=== PATIENT | female | born 1965 | race Caucasian/White ===

== ENCOUNTER 2020-12-26 08:30 | Outpatient (CLI) | payer OTHER, SELFPAY | END 2020-12-26 08:31 | disposition home or self-care (01) | LOC: ANHCOVIDVC 08:30 | PROVIDERS: PCP Internal Medicine | DX: Z23 Encounter for immunization (principal) | CPT/HCPCS: 0001A; 91300 ==

== ENCOUNTER 2021-01-16 08:30 | Outpatient (CLI) | payer OTHER, SELFPAY | END 2021-01-16 08:31 | LOC: ANHCOVIDVC 08:31 | PROVIDERS: PCP Internal Medicine | DX: Z23 Encounter for immunization (principal) | CPT/HCPCS: 0002A; 91300 ==

== ENCOUNTER 2024-01-07 17:00 | Outpatient (CLI) | payer OTHER, SELFPAY ==
--- NOTE | ~2024-01-07 | XR_ITS ---
EXAMINATION: XR hip RT min 2V DATE: 01/07/2024 17:33 INDICATION: Right hip pain TECHNIQUE: Two views of right hip were obtained. COMPARISON: None. FINDINGS: There is moderate osteoarthritis of the hip. Bone alignment is normal. There is no fracture . The soft tissues are unremarkable. IMPRESSION: 1. Moderate osteoarthritis of the right hip. Reviewed, dictated and finalized at location F.
--- NOTE | ~2024-01-07 | XR_ITS ---
EXAMINATION: XR chest 2V 01/07/2024 17:34 INDICATION: Cough PROCEDURE: 2 view chest COMPARISON: No prior studies for comparison. FINDINGS: The lungs are clear. The cardiomediastinal silhouette is within normal limits. There are no pleural effusions. There is no pneumothorax suspected. IMPRESSION: 1: NO ACUTE CARDIOPULMONARY DISEASE. Reviewed, dictated and finalized at location L.
== END 2024-01-07 17:01 | disposition home or self-care (01) ==
LOC: ANHIMG 17:01
PROVIDERS: PCP Internal Medicine; Visit Provider Internal Medicine
DX: M16.11 Unilateral primary osteoarthritis, right hip (principal); R05.9 Cough, unspecified
CPT/HCPCS: 71046; 73502

== ENCOUNTER 2025-01-28 12:50 | Outpatient (CLI) | payer OTHER, SELFPAY ==
--- NOTE | ~2025-01-28 | XR_ITS ---
EXAMINATION: XR UGIAC w barium swallow DATE: 01/28/2025 13:57 INDICATION: Heartburn. Feels like residue in the throat. TECHNIQUE: The patient drank thick barium, gas-producing crystals, and thin barium. Fluoroscopic spot radiographs of the hypopharynx, esophagus, stomach and proximal small bowel were obtained. A total o f 1313 fluoroscopic images of the esophagus, stomach, and proximal small bowel were obtained. Fluoros copy exposure time was 2.2 minutes. Total DAP was 16.632 mGycm^2 COMPARISON: None. FINDINGS: The pharynx is symmetric and without evidence of mass lesion or mucosal irregularity. The c ricopharyngeus muscle at the upper esophagus appears prominent but nonobstructing. The esophagus is o therwise normal without mass or stricture. Esophageal motility is normal. There is no hiatal hernia. There was no gastroesophageal reflux with provocative maneuvers. The stomach and proximal small bowel are normal. IMPRESSION: 1. Mildly prominent cricopharyngeus muscle which does not appear obstructing. Otherwise unremarkable esophagram and upper GI study. Reviewed, dictated and finalized at location A. IMPRESSION: 1. Mildly prominent cricopharyngeus muscle which does not appear obstructing. O therwise unremarkable esophagram and upper GI study.
--- OUTSIDE RECORDS SUMMARY | 2025-01-28 12:56 | XMS_ITS | Referral Summary ---
Author Organization [address] Address [address] [place] [id number] Care Team Providers Care Shovel Oiler Name Role Phone Chucky Ledbetter MD Primary Care Provider +1- [phone] Allergies Active Allergy Reactions Criticality Noted Date Comments Penicillins Anaphylaxis High 09/12/2021 Throat swelling Medications spironolactone (ALDACTONE) 100 mg tablet 09/10/[address] (PROTONIX) 40 mg EC tablet Take 40 mg by mouth every morning 06/21/2021 Active buPROPion XL (WELLBUTRIN XL) 300 mg 24 hr tablet 09/10/2021 Active Active Problems No known active problems Social History Tobacco Use Types Packs/Day Years Used Date Smoking Tobacco: Never Assessed Comments Unknown Sex and Gender Information Value Date Recorded Sex Assigned at Not on file Legal Sex 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 Gender Identity Not on file Sexual Orientation Not on file Last Filed Vital Signs Vital Sign Reading Time Taken Comments Blood Pressure 128/84 09/12/2021 11:24 AM CRUSHER AND BLENDER OPERATOR Pulse 70 09/12/2021 11:24 AM CRUSHER AND BLENDER OPERATOR Temperature 37.7 C (99.8 F) 09/12/2021 11:24 AM CRUSHER AND BLENDER OPERATOR Respiratory Rate 16 09/12/2021 11:24 AM CRUSHER AND BLENDER OPERATOR Oxygen Saturation 97% 09/12/2021 11:56 AM CRUSHER AND BLENDER OPERATOR Inhaled Oxygen Concentration - - Weight 43.9 kg (96 lb 12.8 oz) 09/12/2021 11:24 AM CRUSHER AND BLENDER OPERATOR Height 168.9 cm (5' 6.5 ) 09/12/2021 11:24 AM CS T Body Mass Index 15.39 09/12/2021 11:24 AM CRUSHER AND BLENDER OPERATOR Plan of Treatment Not on file Insurance [facility] HMO/PPO Address: [address] [address] Care Teams Shovel Oiler Relationship Specialty Start Date End Date Chucky Ledbetter MD [address] [facility] [address] [place] [address] PCP - General Internal Medicine 09/12/21
--- OUTSIDE RECORDS SUMMARY | 2025-01-28 12:56 | XMS_ITS | Clinical Summary ---
Author Organization [address] Address [address] [place] [id number] Care Team Providers Care Art Department Head Name Role Phone Chucky Ledbetter MD Primary Care Provider +1- [phone] Allergies Active Allergy Reactions Criticality Noted Date Comments Penicillins Anaphylaxis High 09/12/2021 Throat swelling Medications spironolactone (ALDACTONE) 100 mg tablet 09/10/[address] (PROTONIX) 40 mg EC tablet Take 40 mg by mouth every morning 06/21/2021 Active buPROPion XL (WELLBUTRIN XL) 300 mg 24 hr tablet 09/10/2021 Active Active Problems No known active problems Medical History Medical History Date Comments GERD (gastroesophageal reflux disease) Social History Tobacco Use Types Packs/Day Years Used Date Smoking Tobacco: Never Assessed Comments Unknown Sex and Gender Information Value Date Recorded Sex Assigned at Not on file 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 Gender Identity Not on file Sexual Orientation Not on file Obstetrics History Last Filed Vital Signs Vital Sign Reading Time Taken Comments Blood Pressure 128/84 09/12/2021 11:24 AM MULLING MACHINE OPERATOR Pulse 70 09/12/2021 11:24 AM MULLING MACHINE OPERATOR Temperature 37.7 C (99.8 F) 09/12/2021 11:24 AM MULLING MACHINE OPERATOR Respiratory Rate 16 09/12/2021 11:24 AM MULLING MACHINE OPERATOR Oxygen Saturation 97% 09/12/2021 11:56 AM MULLING MACHINE OPERATOR Inhaled Oxygen Concentration - - Weight 43.9 kg (96 lb 12.8 oz) 09/12/2021 11:24 AM MULLING MACHINE OPERATOR Height 168.9 cm (5' 6.5 ) 09/12/2021 11:24 AM CS T Body Mass Index 15.39 09/12/2021 11:24 AM MULLING MACHINE OPERATOR Plan of Treatment Not on file Insurance Care Teams Art Department Head Relationship Specialty Start Date End Date Chucky Ledbetter MD [address] [facility] [address] [place] [address] PCP - General Internal Medicine 09/12/21
--- OUTSIDE RECORDS SUMMARY | 2025-01-28 12:56 | XMS_ITS | Clinical Summary ---
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 Gender Identity Not on file Sexual Orientation Not on file Plan of Treatment Health Maintenance Due Date Last Done Comments Hepatitis C Virus (HCV) Screening 1965 TdaP Immunization 1965 Colonoscopy 02/11/2009 Colorectal Cancer Screening 02/11/2009 Cologuard 02/11/2014 Immunochemical Fecal Occult Blood 02/11/2014 Pneumococcal Immunization (5 0+ years) (1 of 1 - PCV) 02/11/2014 Zoster Immunization (1 of 2) 02/11/2014 Influenza Immunization (#1) 2024 SARS-COV-2 Immunization ( season) 2024 10/17/2021, 01/16/2021, 12/26/2020 Respiratory Syncytial Virus (RSV) Immunization (Adult) (1 - 1-dose 75+ series) 02/11/2039 Hepatitis B Immunization Aged Out No longer eligible based on patient's age to complete this topic Meningococcal Immunization (ACWY) Aged Out No longer eligible b ased on patient's age to complete this topic Rotavirus Immunization Aged Out No lo nger eligible based on patient's age to complete this topic
== END 2025-01-28 12:51 | disposition home or self-care (01) ==
PROVIDERS: PCP Internal Medicine; Visit Provider Internal Medicine
DX: K21.9 Gastro-esophageal reflux disease without esophagitis (principal)
CPT/HCPCS: 74246

== ENCOUNTER 2025-06-01 14:39 | Outpatient (CLI) | payer OTHER, SELFPAY ==
--- NOTE | ~2025-06-01 | CT_ITS ---
EXAMINATION: CT abdomen pelvis wo con DATE: 06/01/2025 14:53 INDICATION: Unspecified abdominal pain TECHNIQUE: Computed tomography (CT) of the abdomen and pelvis was performed without intravenous contrast. The dose-length product was 1290.14 mGy-cm. COMPARISON: None. FINDINGS: Liver spleen, adrenal glands, pancreas and gallbladder are unremarkable. There is a 4.1 cm cyst in the left kidney. Abdominal aorta is not aneurysmal. No enlarged lymph nodes in the abdomen or pelvis. No enlarged lymph nodes in the pelvis. Bladder is unremarkable. There is a 2.4 cm low-density oval lesion in the left adnexa possibly an ovarian lesion. A pelvic ultrasound is recommended. No free fluid in the pelvis. Uterus is partially calcified. No dilated bowel loops. Thickening of the sunshine of the descending colon with a small amount of surrounding fat stranding. The findings may be secondary to colitis. Multilevel degenerative change in the visualized spine was prominent in the lumbar spine. Multilevel degenerative change in the visualized spine most prominent in the lumbar spine. IMPRESSION: 1. Thickening of the sunshine of the descending colon with a small amount of surrounding fat stranding. The findings may be secondary to colitis. Recommend follow-up to resolution. 2. Left renal cyst. 3. There is a 2.4 cm low-density oval lesion in the left adnexa possibly an ovarian lesion. A pelvic ultrasound is recommended. Reviewed, dictated and finalized at location A. IMPRESSION: 1. Thickening of the sunshine of the descending colon with a small amount of surro unding fat stranding. The findings may be secondary to colitis. Recommend follo w-up to resolution. 2. Left renal cyst. 3. There is a 2.4 cm low-density oval lesion in the left adnexa possibly an ova jose elias lesion. A pelvic ultrasound is recommended.
--- OUTSIDE RECORDS SUMMARY | 2025-06-01 15:14 | XMS_ITS | Clinical Summary ---
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 Gender Identity Not on file Sexual Orientation Not on file Plan of Treatment Health Maintenance Due Date Last Done Comments Hepatitis C Virus (HCV) Screening 1965 TdaP Immunization 1965 Pap Smear 02/11/1985 Cervical Cancer Screening (CCS) 02/11/1994 HPV/Cotest 02/11/1994 Cologuard 02/11/2009 Colonoscopy 02/11/2009 Colorectal Cancer Screening 02/11/2009 Immunochemical Fecal Occult Blood 02/11/2009 Pneumococcal Immunization (5 0+ years) (1 of 1 - PCV) 02/11/2014 Zoster Immunization (1 of 2) 02/11/2014 SARS-COV-2 Immunization ( season) 2024 10/17/2021, 01/16/2021, 12/26/2020 Influenza Immunization (#1) 2025 Respiratory Syncytial Virus (RSV) Immunization (Adult) (1 - 1-dose 75+ series) 02/11/2039 Hepatitis B Immunization Aged Out No longer eligible based on patient's age to complete this topic Human Papillomavirus (HPV) Immunization Aged Out No longer eligible b ased on patient's age to complete this topic Meningococcal Immunization (ACWY) Aged Out No longer eligible b ased on patient's age to complete this topic Rotavirus Immunization Aged Out No lo nger eligible based on patient's age to complete this topic
--- OUTSIDE RECORDS SUMMARY | 2025-06-01 15:14 | XMS_ITS | Clinical Summary ---
Author Organization [address] Address [address] [place] [id number] Care Team Providers Care Arc Welder Apprentice Name Role Phone Chucky Ledbetter MD Primary Care Provider +1- [phone] Allergies Active Allergy Reactions Criticality Noted Date [...] on file Legal Sex Female 11:07 AM MUSIC ADAPTER Gender Identity Not on file Sexual Orientation Not on file Obstetrics History Last Filed Vital Signs Vital Sign Reading Time Taken Comments Blood Pressure 128/84 09/12/2021 11:24 AM MUSIC ADAPTER Pulse 70 09/12/2021 11:24 AM MUSIC ADAPTER Temperature 37.7 C (99.8 F) 09/12/2021 11:24 AM MUSIC ADAPTER Respiratory Rate 16 09/12/2021 11:24 AM MUSIC ADAPTER Oxygen Saturation 97% 09/12/2021 11:56 AM MUSIC ADAPTER Inhaled Oxygen Concentration - - Weight 43.9 kg (96 lb 12.8 oz) 09/12/2021 11:24 AM MUSIC ADAPTER Height 168.9 cm (5' 6.5) 09/12/2021 11:24 AM CS T Body Mass Index 15.39 09/12/2021 11:24 AM MUSIC ADAPTER Plan of [place] [id number] Care Teams Arc Welder Apprentice Relationship Specialty Start Date End Date Chucky Ledbetter MD [address] [facility] [address] [place] [address] PCP - General Internal Medicine 09/12/21
== END 2025-06-01 14:40 | disposition home or self-care (01) ==
PROVIDERS: PCP Internal Medicine; Visit Provider Internal Medicine
DX: R93.5 Abnormal findings on diagnostic imaging of other abdominal regions, including retroperitoneum (principal); N83.202 Unspecified ovarian cyst, left side; K92.1 Melena; N28.1 Cyst of kidney, acquired; R10.9 Unspecified abdominal pain
CPT/HCPCS: 74176

== ENCOUNTER 2025-06-08 15:19 | Outpatient (CLI) | payer OTHER, SELFPAY ==
--- NOTE | ~2025-06-08 | US_ITS ---
EXAMINATION: US pelvic complete INDICATION: Left adnexal mass Comparison:CT dated 06/01/2025 TECHNIQUE: Multiple transabdominal sonographic images of the pelvis performed. FINDINGS: The uterus measures 7.1 x 4.1 x 5.6 cm. There is a partially calcified mass anteriorly in the uterus measuring 1.2 cm, consistent with fibroid. The endometrial complex measures 2 mm. The right ovary is not visualized. Left ovary measures 4.7 x 3.3 x 1.8 cm. There is a cyst of the left ovary measuring 4.3 x 2 x 2.6 cm with low-level internal echoes. There is no free fluid in the pelvis. There are no abnormal masses seen on either side. IMPRESSION: 1. Mildly complicated left ovarian cyst measuring 4.3 cm. 2: Small partially calcified 12 mm uterine fibroid. Reviewed, dictated and finalized at location O.
== END 2025-06-08 15:20 | disposition home or self-care (01) ==
LOC: MICIMG 15:20
PROVIDERS: PCP Internal Medicine; Visit Provider Internal Medicine
DX: N83.292 Other ovarian cyst, left side (principal); D25.9 Leiomyoma of uterus, unspecified
CPT/HCPCS: 76856

== ENCOUNTER 2025-07-20 09:52 | Outpatient (CLI) | payer OTHER, SELFPAY ==
--- NOTE | ~2025-07-20 | US_ITS ---
EXAMINATION: US pelvic complete DATE: INDICATION: Left ovarian cyst. TECHNIQUE: Multiple transabdominal sonographic images of the pelvis were obtained. COMPARISON: Ultrasound 06/08/2025, CT abdomen and pelvis 06/01/25 FINDINGS: The uterus measures 9.3 x 4.1 x 5.9 cm. There is a 2.2 cm intramural fibroid. There is no free fluid in the pelvis. The endometrial complex measures 4 mm in thickness. The right ovary is not visualized. The left ovary measures 3.7 x 2.2 x 3.5 cm. There is a 2.0 cm cyst in left ovary, likely benign. There is normal vascular flow in left ovary. IMPRESSION: 1. 2.0 cm cyst in left ovary, likely benign. 2. Uterine fibroid. Reviewed, dictated and finalized at location E.
== END 2025-07-20 09:53 | disposition home or self-care (01) ==
LOC: MICIMG 09:52
PROVIDERS: PCP Internal Medicine; Visit Provider Obstetrics & Gynecology Gynecology
DX: N83.202 Unspecified ovarian cyst, left side (principal); D25.1 Intramural leiomyoma of uterus
CPT/HCPCS: 76856